=== PATIENT | female | born 1965 | race Two or more races ===

== ENCOUNTER 2018-05-20 11:06 | Outpatient (CLI) | payer OTHER ==
[~2018-05-20 11:06] MED LIST: TOPROL XL50 MG PO; UNITHROID100 MCG PO
== END 2018-05-20 11:14 | disposition home or self-care (01) ==
LOC: MAMO-SONO 11:06
DX: Z12.31 Encounter for screening mammogram for malignant neoplasm of breast (principal); N64.89 Other specified disorders of breast

== ENCOUNTER 2019-06-25 13:12 | Outpatient (CLI) | payer OTHER | END 2019-06-25 13:19 | disposition home or self-care (01) | LOC: MAMO-SONO 13:12 | DX: N60.19 Diffuse cystic mastopathy of unspecified breast (principal) ==

== ENCOUNTER 2021-07-18 13:00 | Outpatient (CLI) | payer OTHER | END 2021-07-18 13:02 | disposition home or self-care (01) | LOC: MAMO-SONO 13:00 | PROVIDERS: ATTEND Specialist | DX: N60.12 Diffuse cystic mastopathy of left breast (principal); N60.11 Diffuse cystic mastopathy of right breast; D24.2 Benign neoplasm of left breast; Z80.3 Family history of malignant neoplasm of breast; Z12.31 Encounter for screening mammogram for malignant neoplasm of breast ==

== ENCOUNTER 2022-08-14 07:47 | Outpatient (CLI) | payer OTHER | END 2022-08-14 08:16 | disposition home or self-care (01) | LOC: MAMO-SONO 07:47 | PROVIDERS: ATTEND Specialist | DX: Z80.3 Family history of malignant neoplasm of breast (principal); N60.11 Diffuse cystic mastopathy of right breast; N60.12 Diffuse cystic mastopathy of left breast; Z12.31 Encounter for screening mammogram for malignant neoplasm of breast ==

== ENCOUNTER 2023-01-26 18:56 | Emergency (ER) | payer OTHER ==
[~2023-01-26] VITALS: Ht 167.6 cm; Wt 63.5 kg
== END 2023-01-26 22:06 | disposition home or self-care (01) ==
LOC: ER 18:56
DX: R10.9 Unspecified abdominal pain (principal); N20.1 Calculus of ureter; Z88.0 Allergy status to penicillin; Z88.2 Allergy status to sulfonamides; Z88.6 Allergy status to analgesic agent; K44.9 Diaphragmatic hernia without obstruction or gangrene

== ENCOUNTER 2023-02-04 06:46 | Outpatient (CLI) | payer OTHER | END 2023-02-04 07:04 | disposition home or self-care (01) | LOC: LAB 06:46 | PROVIDERS: ATTEND Urology | DX: N20.1 Calculus of ureter (principal) ==

== ENCOUNTER 2023-02-04 13:05 | Outpatient (CLI) | payer OTHER | END 2023-02-04 13:19 | disposition home or self-care (01) | LOC: LAB 13:05 | PROVIDERS: ATTEND Urology | DX: N20.1 Calculus of ureter (principal); R31.29 Other microscopic hematuria ==

== ENCOUNTER 2023-09-12 14:10 | Outpatient (CLI) | payer OTHER | END 2023-09-12 14:37 | disposition home or self-care (01) | LOC: MAMO-SONO 14:10 | PROVIDERS: ATTEND Specialist | DX: N60.11 Diffuse cystic mastopathy of right breast (principal); N60.12 Diffuse cystic mastopathy of left breast; Z12.31 Encounter for screening mammogram for malignant neoplasm of breast ==

== ENCOUNTER 2024-10-29 10:49 | Outpatient (CLI) | payer OTHER | END 2024-10-29 11:03 | disposition home or self-care (01) | LOC: MAMO-SONO 10:49 | PROVIDERS: ATTEND Specialist | DX: N60.11 Diffuse cystic mastopathy of right breast (principal); N60.12 Diffuse cystic mastopathy of left breast ==

== ENCOUNTER 2025-11-01 13:22 | Outpatient (CLI) | payer OTHER | END 2025-11-01 13:32 | disposition home or self-care (01) | LOC: MAMO-SONO 13:22 | PROVIDERS: ATTEND Specialist | DX: N60.11 Diffuse cystic mastopathy of right breast (principal); N60.12 Diffuse cystic mastopathy of left breast ==